=== PATIENT | male | born 2000 | race Caucasian/White ===

== ENCOUNTER 2021-09-21 10:17 | Emergency (ER) | payer MEDICAID ==
[~2021-09-21] VITALS: Ht 188 cm; Wt 93.0 kg
[2021-09-21 10:31] VITALS: BP 122/77
[2021-09-21] MEDS ORDERED: AMOX-494 MT (11:00)
[2021-09-21] MEDS ORDERED: IBUP-2029 PO (11:00)
== END 2021-09-21 11:12 | disposition home or self-care (01) ==
LOC: ER 10:17
DX: J02.9 Acute pharyngitis, unspecified (principal)
CPT/HCPCS: 99283